=== PATIENT | female | born 1940 | race Caucasian/White ===

== ENCOUNTER 2017-02-06 11:08 | Inpatient (IN) | payer OTHER ==
[2017-02-06 11:15] VITALS: BMI 28.7
--- NOTE | 2017-02-06 11:56 | PDOC ---
History of Present Illness - General History Source: Patient Exam Limitations: No Limitations - History of Present Illness Initial Comments: 02/06/17 13:21 Patient is a 76 year old female with a significant past medical history of DM and recurrent MDR UTI, who presents to the ED sent in by her PMD for UTI. Dr. Haley took urine culture 4 days ago that came back positive for Klebsiella that is sensitive only to imipenim, ertapenem or amikacin. Patient states that her symptoms have initially developed on 01/21 with generalized weakness and dysuria, and over the last week she has developed L flank pain. She states that she has has hx of UTIs. She reports difficulty walking, weakness, agitation and increased confusion. She denies any fever, chill, nausea, vomiting, abdominal pain. She reports urinary incontinence. PCP - Dr. 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 - Suicide/Smoking/Psychosocial Hx Smoking History: Never smoked Information on smoking cessation initiated: No Hx Alcohol Use: No Drug/Substance Use Hx: No Substance Use Type: None <Margarito Caceres - Last Filed: 02/06/17 14:46> - Past Medical History Allergies/Adverse Reactions: Allergies Allergy/AdvReac Type Severity Reaction Status Date / Time hyoscyamine Allergy Verified 02/06/17 11:15 [From Uretron D-S] hyoscyamine sulfate Allergy Verified 02/06/17 11:15 [From Uretron D-S] iodine Allergy Verified 02/06/17 11:15 methenamine Allergy Verified 02/06/17 11:15 [From Uretron D-S] methylene blue Allergy Verified 02/06/17 11:15 [From Uretron D-S] phenyl salicylate Allergy Verified 02/06/17 11:15 [From Uretron D-S] salicylates Allergy Verified 02/06/17 11:15 [From Uretron D-S] sodium phosphate Allergy Verified 02/06/17 11:15 [From Uretron D-S] iv contrast Allergy Uncoded 02/06/17 11:15 Review of Systems - Review of Systems Able to Perform ROS?: Yes Comments:: 02/06/17 13:21 GENERAL/CONSTITUTIONAL: No fever or chills. No weakness. HEAD, EYES, EARS, NOSE AND THROAT: No change in vision. No ear pain or discharge. No sore throat. GASTROINTESTINAL: No nausea, vomiting, diarrhea or constipation. GENITOURINARY: +urinary incontinence, frequency. No dysuria. CARDIOVASCULAR: No chest pain or shortness of breath. RESPIRATORY: No cough, wheezing, or hemoptysis. MUSCULOSKELETAL: No joint or muscle swelling or pain. No neck or back pain. SKIN: No rash NEUROLOGIC: No headache, vertigo, loss of consciousness, or change in strength/ sensation. ENDOCRINE: No increased thirst. No abnormal weight change. HEMATOLOGIC/LYMPHATIC: No anemia, easy bleeding, or history of blood clots. ALLERGIC/IMMUNOLOGIC: No hives or skin allergy. <Zaynab Fowler - Last Filed: 02/06/17 14:02> *Physical Exam - Vital Signs Last Vital Signs Temp Pulse Resp BP Pulse Ox 98.2 F 77 18 122/61 97 02/06/17 11:12 02/06/17 11:12 02/06/17 11:12 02/06/17 11:12 02/06/17 11:12 - Physical Exam Comments: 02/06/17 13:21 GENERAL: Awake, alert, and fully oriented, in no acute distress HEAD: No signs of trauma EYES: PERRLA, EOMI, sclera anicteric, conjunctiva clear ENT: Auricles normal inspection, hearing grossly normal, nares patent, oropharynx clear without exudates. Moist mucosa NECK: Normal ROM, supple, no lymphadenopathy, JVD, or masses LUNGS: Breath sounds equal, clear to auscultation bilaterally. No wheezes, and no crackles HEART: Regular rate and rhythm, normal S1 and S2, no murmurs, rubs or gallops ABDOMEN: Soft, nontender, normoactive bowel sounds. No guarding, no rebound. No masses. +L CVAT EXTREMITIES: Normal range of motion, no edema. No clubbing or cyanosis. No cords, erythema, or tenderness BACK: No midline spinal tendernes in cervial/throacic/lumbar region NEUROLOGICAL: Normal speech, cranial nerves intact, negative pronator drift, 5/ 5 strength in all 4 extremities, normal sensation to light touch in all 4 extremities, normal cerebellar exam, normal gait, normal reflexes and tone SKIN: Warm, Dry, normal turgor, no rashes or lesions noted. <Zaynab Fowler - Last Filed: 02/06/17 14:02> - Vital Signs Last Vital Signs Temp Pulse Resp BP Pulse Ox 98.2 F 77 18 122/61 97 02/06/17 11:12 02/06/17 11:12 02/06/17 11:12 02/06/17 11:12 02/06/17 11:12 <Margarito Caceres - Last Filed: 02/06/17 14:46> Heart Score/ECG Review #1 02/06/17 14:02 Normal sinus at rate 65 Normal axis Norm intervals T wave inversion in lead [address] elevations <Zaynab Fowler - Last Filed: 02/06/17 14:02> ED Treatment Course - LABORATORY CBC & Chemistry Diagram: 02/06/17 13:10 02/06/17 13:10 - ADDITIONAL ORDERS Additional order review: Laboratory Results 02/06/17 13:10 Urine Color Dkyellow Urine Appearance Cloudy Urine pH 5.0 Urine Protein Negative Urine Glucose (UA) Negative Urine Ketones Negative Urine Blood 1+ H Urine Nitrite Positive Urine Bilirubin Negative Urine Urobilinogen Negative Urine RBC 11 Urine WBC 1145 Ur Epithelial Cells Few Urine Bacteria Few Hyaline Casts 7 Urine Mucus Many Urine Yeast Rare 02/06/17 13:10 RBC 4.11 MCV 87.6 MCHC 32.8 RDW 15.9 H MPV 7.3 L Neutrophils % 64.0 Lymphocytes % 25.3 Monocytes % 8.7 Eosinophils % 1.8 Basophils % 0.2 <Zaynab Fowler - Last Filed: 02/06/17 14:02> - LABORATORY CBC & Chemistry Diagram: 02/06/17 13:10 02/06/17 13:10 <Margarito Caceres - Last Filed: 02/06/17 14:46> Medical Decision Making - Medical Decision Making 02/06/17 13:00 76yo F hx MDR UTI p/w MDR UTI. Vitals unremarkable, exam with L CVAT c/f pyelo. Pt has PCN allergy (reports only a rash) and out of concern for cross reactivity with erta or imipenem will c/s ID for recs. -labs -rpt UA/UCx -abx per ID -admit 02/06/17 13:[address] Meza, he will come to evaluate patient and review sensitivities to make recs. Labs pending. 02/06/17 14:43 UA with infection, labs unremarkable. Dr. Meza recommends ertapenem as well as a renal US which he has kindly ordered. Case discussed in detail with admitting physician Dr. Schneider/Mah[place] including history, physical exam and ancillary studies. Admitting physician has assumed care for the patient, will follow all pending diagnostics and will complete the evaluation and treatment. <Margarito Caceres - Last Filed: 02/06/17 14:46> *DC/Admit/Observation/Transfer - Attestations Scribe Attestion: 02/06/17 13:22 Documentation prepared by LENNY Harry, acting as medical van driver for Margarito Caceres MD. <Zaynab Fowler - Last Filed: 02/06/17 14:02> - Discharge Dispostion Admit: Yes - Attestations Physician Attestion: 02/06/17 14:46 I, Dr. Margarito Caceres MD, attest that this document has been prepared under my direction and personally reviewed by me in its entirety. I further attest, that it accurately reflects all work, treatment, procedures and medical decision -making performed by me. <Margarito Caceres - Last Filed: 02/06/17 14:46> Diagnosis at time of Disposition: Pyelonephritis - Discharge Dispostion Condition at time of disposition: Stable - Referrals Referrals: Ana Sam MD [Primary Care Provider] -
[2017-02-06 13:14] LABS: BASOPHIL 0.2 % (0-2.0); EOSINOPHIL 1.8 % (0-4.5); MCH 28.8 pg (25.7-33.7); MCHC 32.8 g/dl (32.0-36.0); MEAN CELL VOLUME 87.6 fl (80-96); MEAN PLT VOLUME 7.3 fl (7.5-11.1); PLATELET COUNT 172 K/MM3 (134-434); RDW 15.9 % (11.6-15.6); WHITE BLOOD COUNT 6.9 K/mm3 (4.0-10.0)
[2017-02-06 13:15] LABS: URINE APPEARANCE CLOUDY; URINE BILIRUBIN NEGATIVE (NEGATIVE); URINE BLOOD 1+ (NEGATIVE); URINE COLOR DKYELLOW; URINE GLUCOSE (UA) NEGATIVE (NEGATIVE); URINE KETONE NEGATIVE (NEGATIVE); URINE NITRITE POSITIVE (NEGATIVE); URINE PROTEIN NEGATIVE (NEGATIVE); URINE UROBILINOGEN NEGATIVE mg/dL (0.2-1.0)
[2017-02-06 13:16] LABS: URINE LEUK ESTERASE 3+ (NEGATIVE)
[2017-02-06 13:19] LABS: URINE BACTERIA FEW /hpf (NONE SEEN); URINE HYALINE CAST 7 /lpf; URINE MUCUS MANY; URINE RBC 11 /hpf (0-3); URINE WBC 1145 /hpf (3-5); YEAST RARE
[2017-02-06 13:42] LABS: ALBUMIN 3.5 g/dl (3.4-5.0); ALK PHOS 63 U/L (45-117); ANION GAP 10 (8-16); BILIRUBIN,TOTAL 0.4 mg/dL (0.2-1.0); CO2 28 mmol/L (21-32); CREATININE 0.4 mg/dL (0.55-1.02); GLUCOSE,RANDOM 82 mg/dL (74-106); SGOT/AST 16 U/L (15-37); SGPT/ALT 17 U/L (12-78); TOT PROT 7.1 g/dl (6.4-8.2)
--- NOTE | 2017-02-06 13:50 | CON.ID ---
Consult Consult Specialty:: infectious diseases Reason for Consultation:: mdro uti - History of Present Illness Chief Complaint: weakness fatigue,loos of balance History of Present Illness: 76 year old female with a significant past medical history of DM and recurrent MDR UTI, who presents to the ED sent in by her PMD for UTI. Dr. Haley took urine culture 4 days ago that came back positive for Klebsiella that is sensitive only to imipenim, ertapenem or amikacin. Patient states that her symptoms have initially developed on 01/21 with generalized weakness and dysuria, and over the last week she has developed L flank pain. She states that she has has hx of UTIs. patient has been very weak and has lost balance says she feels feverish and the weakness has increased - History Source History Provided By: Patient, Family Member Limitations to Obtaining History: No Limitations - Alcohol/Substance Use Hx Alcohol Use: No - Smoking History Smoking history: Never smoked Home Medications - Allergies Allergies/Adverse Reactions: Allergies Allergy/AdvReac Type Severity Reaction Status Date / Time hyoscyamine Allergy Verified 02/06/17 11:15 [From Uretron D-S] hyoscyamine sulfate Allergy Verified 02/06/17 11:15 [From Uretron D-S] iodine Allergy Verified 02/06/17 11:15 methenamine Allergy Verified 02/06/17 11:15 [From Uretron D-S] methylene blue Allergy Verified 02/06/17 11:15 [From Uretron D-S] phenyl salicylate Allergy Verified 02/06/17 11:15 [From Uretron D-S] salicylates Allergy Verified 02/06/17 11:15 [From Uretron D-S] sodium phosphate Allergy Verified 02/06/17 11:15 [From Uretron D-S] iv contrast Allergy Uncoded 02/06/17 11:15 Review of Systems - Review of Systems Constitutional: reports: Weakness, Other Eyes: reports: No Symptoms HENT: reports: No Symptoms Neck: reports: No Symptoms Cardiovascular: reports: No Symptoms Respiratory: reports: No Symptoms Gastrointestinal: reports: No Symptoms Genitourinary: reports: Dysuria, Flank Pain (left) Musculoskeletal: reports: Muscle Weakness Integumentary: reports: No Symptoms Neurological: reports: No Symptoms Endocrine: reports: No Symptoms Hematology/Lymphatic: reports: No Symptoms Psychiatric: reports: No Symptoms Physical Exam Vital Signs: Vital Signs Temperature 98.2 F 02/06/17 11:12 Pulse Rate 77 02/06/17 11:12 Respiratory Rate 18 02/06/17 11:12 Blood Pressure 122/61 02/06/17 11:12 O2 Sat by Pulse Oximetry (%) 97 02/06/17 11:12 Constitutional: Yes: No Distress, Calm Eyes: Yes: Conjunctiva Clear HENT: Yes: Atraumatic, Normocephalic Neck: Yes: Supple, Trachea Midline Respiratory: Yes: Regular, CTA Bilaterally Gastrointestinal: Yes: Normal Bowel Sounds, Soft Renal/: Yes: CVA Tenderness - Left Musculoskeletal: Yes: WNL Extremities: Yes: WNL Neurological: Yes: Alert, Oriented Psychiatric: Yes: Alert, Oriented Labs: CBC, BMP 02/06/17 13:10 02/06/17 13:10 Assessment/Plan evaluated the patient i am worried that the patient has pyelo patient had culture and sensitivity done outside report shows mdro mdro uti fever pyelo weakness plan will start on ertapenam u/s of the kidneys hydration rest as per primary
--- NOTE | 2017-02-06 14:30 | EKG ---
Test Reason : Blood Pressure : / mmHG Vent. Rate : 065 BPM Atrial Rate : 065 BPM P-R Int : 166 ms QRS Dur : 084 ms QT Int : 434 ms P-R-T Axes : 008 -01 028 degrees QTc Int : 451 ms NORMAL SINUS RHYTHM MINIMAL VOLTAGE CRITERIA FOR LVH, MAY BE NORMAL VARIANT BORDERLINE ECG NO PREVIOUS ECGS AVAILABLE Confirmed by KAYLEY TREJO MD ([id number]) on 02/06/2017 2:29:38 PM Referred By: Confirmed By:KAYLEY TREJO MD
[2017-02-06] MEDS: ERTAPENEM SODIUM 1 GM in SODIUM CHLORIDE 50 ML IVPB SCH (15:44)
[2017-02-06] MEDS ORDERED: oxyCODONE HCL 5 MG TABLET PO PRN (16:00)
[2017-02-06] MEDS ORDERED: SODIUM CHLORIDE 0.45% 1,000 ML IV SCH (16:00)
--- NOTE | 2017-02-06 16:05 | HP ---
Admitting History and Physical - Admission Chief Complaint: confusion, urinary frequency History of Present Illness: This is a 76 year old male with DM II and history of recurrent MDR UTI's. Patient presented to her PCP with 1 week complaints of urinary frequency and supra pubic pelvic pain, L flank pain. Urine cx resulted with MDR organisms and pt was sent to ER for abx. Per son, pt has been increasingly more confused and agitated. Currently, pt appears at baseline, denies SOB, CP, nausea, vomiting. Son noted her gait has been a unsteady as well. History Source: Patient, Family Member Limitations to Obtaining History: No Limitations - Past Medical History Cardiovascular: Yes: Other (hypotension) Pulmonary: Yes: Asthma Gastrointestinal: Yes: Diverticulitis Endocrine: Yes: Diabetes Mellitus - Past Surgical History Past Surgical History: Yes: Appendectomy, Cholecystectomy Additional Past Surgical History: R knee replacement Bladder sling for prolapsed bladder - Smoking History Smoking history: Never smoked - Alcohol/Substance Use Hx Alcohol Use: No History of Substance Use: reports: None - Social History Usual Living Arrangement: Yes: Alone ADL: Independent Home Medications - Allergies Allergies/Adverse Reactions: Allergies Allergy/AdvReac Type Severity Reaction Status Date / Time hyoscyamine Allergy Verified 02/06/17 11:15 [From Uretron D-S] hyoscyamine sulfate Allergy Verified 02/06/17 11:15 [From Uretron D-S] iodine Allergy Verified 02/06/17 11:15 methenamine Allergy Verified 02/06/17 11:15 [From Uretron D-S] methylene blue Allergy Verified 02/06/17 11:15 [From Uretron D-S] phenyl salicylate Allergy Verified 02/06/17 11:15 [From Uretron D-S] salicylates Allergy Verified 02/06/17 11:15 [From Uretron D-S] sodium phosphate Allergy Verified 02/06/17 11:15 [From Uretron D-S] iv contrast Allergy Uncoded 02/06/17 11:15 Review of Systems - Review of Systems Constitutional: reports: Lethargy, Weakness Physical Examination Vital Signs: Vital Signs Temperature 98.2 F 02/06/17 11:12 Pulse Rate 77 02/06/17 11:12 Respiratory Rate 18 02/06/17 11:12 Blood Pressure 122/61 02/06/17 11:12 O2 Sat by Pulse Oximetry (%) 97 02/06/17 11:12 Constitutional: Yes: Calm Eyes: Yes: Conjunctiva Clear Cardiovascular: Yes: Regular Rate and Rhythm, S1, S2 Respiratory: Yes: Regular, CTA Bilaterally Gastrointestinal: Yes: Normal Bowel Sounds, Soft, Other (lower abdominal tenderness) Renal/: Yes: CVA Tenderness - Left Extremities: Yes: WNL Edema: No Integumentary: Yes: WNL Neurological: Yes: Alert, Oriented, Cran Nerves II-XII Intact Psychiatric: Yes: Alert, Oriented Imaging - Results X-ray: Report Reviewed EKG: Report Reviewed Problem List - Problems (1) Pyelonephritis Code(s): N12 - TUBULO-INTERSTITIAL NEPHRITIS, NOT SPCF ACUTE OR CHRONIC (2) UTI due to Klebsiella species Code(s): N39.0 - URINARY TRACT INFECTION, SITE NOT SPECIFIED B96.1 - KLEBSIELLA PNEUMONIAE THE CAUSE OF DISEASES [facility] (3) Diabetes mellitus Code(s): E11.9 - TYPE 2 DIABETES MELLITUS WITHOUT COMPLICATIONS Assessment/Plan Assessment: 76 year old female admitted with MDR UTI Plan: 1. MDR UTI - Urine cx pending - Started Ertapenem - Start NS 83cc/hr - ID seeing 2. Pyelonephritis - Renal US wnl - See above 3. DM II - ISS, BGM ACHS Visit type - Emergency Visit Emergency Visit: Yes ED Registration Date: 02/06/17 Care time: The patient presented to the Emergency Department on the above date and was hospitalized for further evaluation of their emergent condition. - New Patient This patient is new to me today: Yes Date on this admission: 02/06/17 - Critical Care Critical Care patient: No
[2017-02-06] MEDS: SODIUM CHLORIDE 1,000 ML IV SCH (17:00)
[2017-02-06] MEDS: INSULIN SLIDING SCALE (NOVOLOG) 1 VIAL SQ SCH ×2 (18:50→21:27)
[2017-02-07] MEDS: SODIUM CHLORIDE 1,000 ML IV SCH ×2 (05:34→15:30)
[2017-02-07] MEDS: INSULIN SLIDING SCALE (NOVOLOG) 1 VIAL SQ SCH ×4 (06:04→22:04)
[2017-02-07] MEDS: ACETAMINOPHEN 325 MG TABLET (FP) PO PRN ×2 (06:11→15:31)
[2017-02-07 07:44] LABS: BASOPHIL 0.1 % (0-2.0); EOSINOPHIL 1.6 % (0-4.5); MCH 28.6 pg (25.7-33.7); MCHC 32.8 g/dl (32.0-36.0); MEAN CELL VOLUME 87.4 fl (80-96); NEUTROPHILS 68.4 % (42.8-82.8); PLATELET COUNT 157 K/MM3 (134-434); RDW 15.3 % (11.6-15.6); WHITE BLOOD COUNT 7.3 K/mm3 (4.0-10.0)
[2017-02-07 08:37] LABS: ALBUMIN 3.1 g/dl (3.4-5.0); ALK PHOS 56 U/L (45-117); ANION GAP 10 (8-16); BILIRUBIN,TOTAL 0.6 mg/dL (0.2-1.0); CALCIUM 8.3 mg/dL (8.5-10.1); CO2 25 mmol/L (21-32); CREATININE 0.4 mg/dL (0.55-1.02); GLUCOSE,RANDOM 86 mg/dL (74-106); MAGNESIUM 2.1 mg/dL (1.8-2.4); PHOSPHOROUS 2.9 mg/dL (2.5-4.9); SGOT/AST 13 U/L (15-37); SGPT/ALT 15 U/L (12-78); TOT PROT 6.6 g/dl (6.4-8.2)
[2017-02-07] MEDS ORDERED: PT OWN MED DRAWER 7, Y5N ONE (10:56)
[2017-02-07] MEDS: ERTAPENEM SODIUM 1 GM in SODIUM CHLORIDE 50 ML IVPB SCH (10:59)
[2017-02-07] MEDS: ENOXAPARIN NA (PORCINE) 40 MG/0.4 ML DISP.SYRIN SQ SCH (10:59)
--- NOTE | 2017-02-07 13:25 | PN ---
Progress Note, Physician History of Present Illness: had severe pain last night in the back now she is comfortable urine showing infection - Current Medication List Current Medications: Active Medications Acetaminophen (Tylenol -) 650 mg PO Q6H PRN PRN Reason: FEVER OR PAIN Last Admin: 02/07/17 06:11 Dose: 650 mg Enoxaparin Sodium (Lovenox -) 40 mg SQ DAILY [facility] Last Admin: 02/07/17 10:59 Dose: 40 mg Ertapenem 1 gm/ Sodium (Chloride) 50 mls @ 100 mls/hr IVPB DAILY [facility] PRN Reason: Protocol Last Admin: 02/07/17 10:59 Dose: 100 mls/hr Sodium Chloride (Normal Saline -) 1,000 mls @ 83 mls/hr IV ASDIR [facility] Last Admin: 02/07/17 05:34 Dose: 83 mls/hr Insulin Aspart (Novolog Vial Sliding Scale -) 1 vial SQ ACHS [facility] PRN Reason: Protocol Last Admin: 02/07/17 12:16 Dose: Not Given Oxycodone HCl (Roxicodone -) 5 mg PO Q6H PRN PRN Reason: PAIN - Objective Vital Signs: Vital Signs Temperature 96.8 F L 02/07/17 09:29 Pulse Rate 74 02/07/17 09:29 Respiratory Rate 17 02/07/17 09:29 Blood Pressure 108/52 02/07/17 09:29 O2 Sat by Pulse Oximetry (%) 100 02/06/17 16:00 Constitutional: Yes: No Distress, Calm Cardiovascular: Yes: Regular Rate and Rhythm Respiratory: Yes: Regular, CTA Bilaterally Gastrointestinal: Yes: Normal Bowel Sounds, Soft Musculoskeletal: Yes: WNL Extremities: Yes: WNL Neurological: Yes: Alert, Oriented Psychiatric: Yes: Alert, Oriented Labs: CBC, BMP 02/07/17 06:50 02/07/17 06:50 - ....Imaging Ultrasound: Report Reviewed, Image Reviewed Assessment/Plan mdro uti fever pyelo weakness plan continue current abx monitor back pain hydration rest as per primary team
--- NOTE | 2017-02-07 14:12 | PN ---
Physical Exam: SUBJECTIVE: Patient seen and examined. She is feeling better, but still c/o dysuria and L flank tenderness. Denies fever, chills OBJECTIVE: Vital Signs Period Temp Pulse Resp BP Sys/Flynn Pulse Ox Last 24 Hr 96.8 F-98.5 F 71-78 14-20 94-108/45-59 100 PE Neuro: alert, awake, cn 2-12intact Pulm: CTAB CV: s1 s2 rrr no mrg Abd: s nt nd + bs : L flank pain Ext: warm, no le edema Laboratory Results - last 24 hr 02/07/17 02/07/17 02/07/17 06:50 06:50 11:39 WBC 7.3 RBC 4.05 Hgb 11.6 Hct 35.3 MCV 87.4 MCH 28.6 MCHC 32.8 RDW 15.3 Plt Count 157 MPV 8.0 Neutrophils % 68.4 Lymphocytes % 20.6 Monocytes % 9.3 Eosinophils % 1.6 Basophils % 0.1 Sodium 140 Potassium 3.9 Chloride 105 Carbon Dioxide 25 Anion Gap 10 BUN 12 Creatinine 0.4 L Creat Clearance w eGFR > 60 POC Glucometer 86 Random Glucose 86 Calcium 8.3 L Phosphorus 2.9 Magnesium 2.1 Total Bilirubin 0.6 D AST 13 L ALT 15 Alkaline Phosphatase 56 Total Protein 6.6 Albumin 3.1 L Active Medications Generic Name Dose Route Start Last Admin Trade Name Freq PRN Reason Stop Dose Admin Acetaminophen 650 mg 02/07/17 05:41 02/07/17 06:11 Tylenol - PO 650 mg Q6H PRN Administration FEVER OR PAIN Enoxaparin Sodium 40 mg 02/07/17 10:00 02/07/17 10:59 Lovenox - SQ 40 mg DAILY [facility] Administration Ertapenem 1 gm/ Sodium 50 mls @ 100 mls/hr 02/06/17 14:00 02/07/17 10:59 Chloride IVPB 100 mls/hr DAILY [facility] Administration Protocol Sodium Chloride 1,000 mls @ 83 mls/hr 02/06/17 16:15 02/07/17 05:34 Normal Saline - IV 83 mls/hr ASDIR [facility] Administration Insulin Aspart 1 vial 02/06/17 16:30 02/07/17 12:16 Novolog Vial Sliding Scale - SQ Not Given ACHS [facility] Protocol Oxycodone HCl 5 mg 02/06/17 16:00 Roxicodone - PO Q6H PRN PAIN Microbiology 02/06/17 13:10 Blood Culture - Preliminary Blood - Peripheral Venous NO GROWTH OBTAINED AFTER 24 HOURS, INCUBATION TO CONTINUE FOR 4 DAYS. 02/06/17 13:10 Blood Culture - Preliminary Blood - Peripheral Venous NO GROWTH OBTAINED AFTER 24 HOURS, INCUBATION TO CONTINUE FOR 4 DAYS. 02/06/17 13:10 Urine Culture - Preliminary Urine - Urine Clean Catch Lactose Fermenting Neg Bacilli Assessment: 76 year old female admitted with MDR UTI. Plan: 1. MDR UTI - Urine cx LFNB - Ertapenem (day 2) - Decrease to 75cc/hr - ID seeing 2. Pyelonephritis - Renal US wnl - See above 3. DM II - ISS, BGM ACHS Problem List - Problems (1) Pyelonephritis Code(s): N12 - TUBULO-INTERSTITIAL NEPHRITIS, NOT SPCF ACUTE OR CHRONIC (2) UTI due to Klebsiella species Code(s): N39.0 - URINARY TRACT INFECTION, SITE NOT SPECIFIED B96.1 - KLEBSIELLA PNEUMONIAE THE CAUSE OF DISEASES CLASSD [facility] (3) Diabetes mellitus Code(s): E11.9 - TYPE 2 DIABETES MELLITUS WITHOUT COMPLICATIONS Visit type - Emergency Visit Emergency Visit: Yes ED Registration Date: 02/06/17 Care time: The patient presented to the Emergency Department on the above date and was hospitalized for further evaluation of their emergent condition. - New Patient This patient is new to me today: No - Critical Care Critical Care patient: No
[2017-02-08] MEDS: INSULIN SLIDING SCALE (NOVOLOG) 1 VIAL SQ SCH ×4 (06:24→21:18)
[2017-02-08] MEDS: SODIUM CHLORIDE 1,000 ML IV SCH ×2 (06:24→21:13)
[2017-02-08] MEDS: ENOXAPARIN NA (PORCINE) 40 MG/0.4 ML DISP.SYRIN SQ SCH (10:47)
[2017-02-08] MEDS: ERTAPENEM SODIUM 1 GM in SODIUM CHLORIDE 50 ML IVPB SCH (11:52)
--- NOTE | 2017-02-08 12:31 | PN ---
Progress Note, Physician History of Present Illness: doing well no issues - Current Medication List Current Medications: Active Medications Acetaminophen (Tylenol -) 650 mg PO Q6H PRN PRN Reason: FEVER OR PAIN Last Admin: 02/07/17 15:31 Dose: 650 mg Docusate Sodium (Colace -) 100 mg PO TID REPLACED BY [facility] Enoxaparin Sodium (Lovenox -) 40 mg SQ DAILY REPLACED BY [facility] Last Admin: 02/08/17 10:47 Dose: 40 mg Ertapenem 1 gm/ Sodium (Chloride) 50 mls @ 100 mls/hr IVPB DAILY [facility] PRN Reason: Protocol Last Admin: 02/08/17 11:52 Dose: 100 mls/hr Sodium Chloride (Normal Saline -) 1,000 mls @ 75 mls/hr IV ASDIR REPLACED BY [facility] Last Admin: 02/08/17 06:24 Dose: 75 mls/hr Insulin Aspart (Novolog Vial Sliding Scale -) 1 vial SQ ACHS REPLACED BY [facility] PRN Reason: Protocol Last Admin: 02/08/17 11:33 Dose: Not Given Oxycodone HCl (Roxicodone -) 5 mg PO Q6H PRN PRN Reason: PAIN Polyethylene Glycol (Miralax (For Daily Use) -) 17 gm PO DAILY REPLACED BY [facility] - Objective Vital Signs: Vital Signs Temperature 98.2 F 02/08/17 07:00 Pulse Rate 77 02/08/17 07:00 Respiratory Rate 18 02/08/17 09:00 Blood Pressure 106/66 02/08/17 07:00 O2 Sat by Pulse Oximetry (%) 100 02/06/17 16:00 Constitutional: Yes: No Distress, Calm Neck: Yes: Supple Cardiovascular: Yes: Regular Rate and Rhythm Respiratory: Yes: Regular, CTA Bilaterally Gastrointestinal: Yes: Normal Bowel Sounds, Soft Musculoskeletal: Yes: WNL Extremities: Yes: WNL Neurological: Yes: Alert, Oriented Psychiatric: Yes: Alert, Oriented Labs: CBC, BMP 02/07/17 06:50 02/07/17 06:50 Assessment/Plan mdro uti fever pyelo weakness cx result noted patient has esbl uti plan continue current abx patient improving
[2017-02-08 13:15] LABS: BASOPHIL 0.3 % (0-2.0); EOSINOPHIL 1.6 % (0-4.5); MCH 28.8 pg (25.7-33.7); MEAN CELL VOLUME 87.3 fl (80-96); MEAN PLT VOLUME 7.9 fl (7.5-11.1); NEUTROPHILS 65.4 % (42.8-82.8); PLATELET COUNT 154 K/MM3 (134-434); RDW 15.7 % (11.6-15.6); WHITE BLOOD COUNT 6.9 K/mm3 (4.0-10.0)
[2017-02-08 13:23] LABS: ANION GAP 5 (8-16); BILIRUBIN,TOTAL 0.2 mg/dL (0.2-1.0); CALCIUM 8.4 mg/dL (8.5-10.1); CO2 30 mmol/L (21-32); CREATININE 0.4 mg/dL (0.55-1.02); GLUCOSE,RANDOM 111 mg/dL (74-106); SGOT/AST 12 U/L (15-37); SGPT/ALT 16 U/L (12-78); TOT PROT 6.4 g/dl (6.4-8.2)
[2017-02-08 13:24] LABS: ALK PHOS 58 U/L (45-117)
[2017-02-08] MEDS: DOCUSATE SODIUM 100 MG CAPSULE (FP) PO SCH ×2 (13:55→21:17)
[2017-02-08] MEDS: POLYETHYLENE GLYCOL 3350 119 GM BTL PO SCH (13:57)
--- NOTE | 2017-02-08 18:35 | PN ---
Physical Exam: SUBJECTIVE: Patient seen and examined at the bedside. OBJECTIVE: Vital Signs Period Temp Pulse Resp BP Sys/Flynn Pulse Ox Last 24 Hr 97.8 F-98.7 F 71-84 18-20 101-106/51-66 GENERAL: The patient is awake, alert, and fully oriented, in no acute distress. HEAD: Normal with no signs of trauma. EYES: PERRL, extraocular movements intact, sclera anicteric, conjunctiva clear. No ptosis. ENT: Ears normal, nares patent, oropharynx clear without exudates, moist mucous membranes. NECK: Trachea midline, full range of motion, supple. LUNGS: Breath sounds equal, clear to auscultation bilaterally, no wheezes, no crackles, no accessory muscle use. HEART: Regular rate and rhythm, S1, S2 without murmur, rub or gallop. ABDOMEN: Soft, nontender, nondistended, normoactive bowel sounds, no guarding, no rebound, no hepatosplenomegaly, no masses. EXTREMITIES: 2+ pulses, warm, well-perfused, no edema. NEUROLOGICAL: Normal speech, gait not observed. PSYCH: Normal mood, normal affect. SKIN: Warm, dry, normal turgor, no rashes or lesions noted Laboratory Results - last 24 hr 02/07/17 02/08/17 02/08/17 21:35 05:39 11:32 WBC RBC Hgb Hct MCV MCH MCHC RDW Plt Count MPV Neutrophils % Lymphocytes % Monocytes % Eosinophils % Basophils % Sodium Potassium Chloride Carbon Dioxide Anion Gap BUN Creatinine Creat Clearance w eGFR POC Glucometer 88 94 123 Random Glucose Calcium Total Bilirubin AST ALT Alkaline Phosphatase Total Protein Albumin 02/08/17 02/08/17 02/08/17 12:45 12:45 16:50 WBC 6.9 RBC 3.82 Hgb 11.0 Hct 33.3 MCV 87.3 MCH 28.8 MCHC 33.0 RDW 15.7 H Plt Count 154 MPV 7.9 Neutrophils % 65.4 Lymphocytes % 23.2 Monocytes % 9.5 Eosinophils % 1.6 Basophils % 0.3 Sodium 140 Potassium 3.6 Chloride 105 Carbon Dioxide 30 Anion Gap 5 L BUN 9 D Creatinine 0.4 L Creat Clearance w eGFR > 60 POC Glucometer 81 Random Glucose 111 H D Calcium 8.4 L Total Bilirubin 0.2 D AST 12 L ALT 16 Alkaline Phosphatase 58 Total Protein 6.4 Albumin 3.0 L Active Medications Generic Name Dose Route Start Last Admin Trade Name Freq PRN Reason Stop Dose Admin Acetaminophen 650 mg 02/07/17 05:41 02/07/17 15:31 Tylenol - PO 650 mg Q6H PRN Administration FEVER OR PAIN Docusate Sodium 100 mg 02/08/17 14:00 02/08/17 13:55 Colace - PO 100 mg TID MACHO Administration Enoxaparin Sodium 40 mg 02/07/17 10:00 02/08/17 10:47 Lovenox - SQ 40 mg DAILY MACHO Administration Ertapenem 1 gm/ Sodium 50 mls @ 100 mls/hr 02/06/17 14:00 02/08/17 11:52 Chloride IVPB 100 mls/hr DAILY MACHO Administration Protocol Sodium Chloride 1,000 mls @ 75 mls/hr 02/07/17 14:14 02/08/17 06:24 Normal Saline - IV 75 mls/hr ASDIR MACHO Administration Insulin Aspart 1 vial 02/06/17 16:30 02/08/17 16:56 Novolog Vial Sliding Scale - SQ Not Given ACHS MACHO Protocol Oxycodone HCl 5 mg 02/06/17 16:00 Roxicodone - PO Q6H PRN PAIN Polyethylene Glycol 17 gm 02/08/17 12:30 02/08/17 13:57 Miralax (For Daily Use) - PO Not Given DAILY MACHO ASSESSMENT/PLAN: Patient is a 76 year old female with a significant past medical history of DM and recurrent multidrug resistant UTIs. She was sent to the ED by her PMD on UTI. Dr. Haley took urine culture that came back positive for Klebsiella that is sensitive only to select antibiotics. Patient states that her symptoms have initially developed on 01/21 with generalized weakness and dysuria, and over the last week she has developed left flank pain. Patient reported difficulty walking, weakness, agitation and increased confusion at home. She denies any fever, chill, nausea, vomiting, abdominal pain. She reports urinary incontinence. Currently, patient appears at baseline, denies SOB, CP, nausea, vomiting. She is ambulating in the room, without any dizziness or shortness of breath. Imaging: Renal ultrasound: Both kidneys appear unremarkable ID/Renal: Multidrug resistant UTIs - acute on chronic A/P: Urine culture with + ESBL in urine, blood cultures negative to date On Ertapenem as of 02/06/2017, on IVF of NS @ 75cc/hr Monitor WBC, labs ID following, notes reviewed Neuro: Toxic metabolic encephalopathy in the setting of a UTI - resolved A/P: Monitor intake and output, monitor mental status Continue IVF, will order PT when patient more stable F.E.N. Fluids: Normal saline @ 75cc/hr Electrolytes: monitor BMP Nutrition: low sodium diet Prophylaxis: DVT: Lovenox 40mg daily GI: colace Visit type - Emergency Visit Emergency Visit: Yes ED Registration Date: 02/06/17 Care time: The patient presented to the Emergency Department on the above date and was hospitalized for further evaluation of their emergent condition. - New Patient This patient is new to me today: Yes Date on this admission: 02/09/17 - Critical Care Critical Care patient: No - Discharge Referral Referred to [facility] Med P.C.: No
[2017-02-09] MEDS: DOCUSATE SODIUM 100 MG CAPSULE (FP) PO SCH ×3 (06:17→22:09)
[2017-02-09] MEDS: INSULIN SLIDING SCALE (NOVOLOG) 1 VIAL SQ SCH ×4 (06:17→22:10)
[2017-02-09 07:38] LABS: BASOPHIL 0.4 % (0-2.0); EOSINOPHIL 2.8 % (0-4.5); MCHC 33.3 g/dl (32.0-36.0); NEUTROPHILS 50.2 % (42.8-82.8); PLATELET COUNT 157 K/MM3 (134-434); RDW 15.5 % (11.6-15.6); WHITE BLOOD COUNT 4.9 K/mm3 (4.0-10.0)
[2017-02-09 08:11] LABS: ALBUMIN 2.9 g/dl (3.4-5.0); ALK PHOS 53 U/L (45-117); ANION GAP 6 (8-16); BILIRUBIN,TOTAL 0.2 mg/dL (0.2-1.0); CO2 28 mmol/L (21-32); CREATININE 0.3 mg/dL (0.55-1.02); GLUCOSE,RANDOM 86 mg/dL (74-106); SGOT/AST 11 U/L (15-37); SGPT/ALT 13 U/L (12-78); TOT PROT 6.2 g/dl (6.4-8.2)
[2017-02-09] MEDS: SODIUM CHLORIDE 1,000 ML IV SCH ×2 (09:35→13:34)
[2017-02-09] MEDS: ENOXAPARIN NA (PORCINE) 40 MG/0.4 ML DISP.SYRIN SQ SCH (09:36)
[2017-02-09] MEDS: POLYETHYLENE GLYCOL 3350 119 GM BTL PO SCH (09:36)
[2017-02-09] MEDS: ERTAPENEM SODIUM 1 GM in SODIUM CHLORIDE 50 ML IVPB SCH (11:02)
--- NOTE | 2017-02-09 12:35 | PN ---
Progress Note, Physician History of Present Illness: doing well no issues - Current Medication List Current Medications: Active Medications Acetaminophen (Tylenol -) 650 mg PO Q6H PRN PRN Reason: FEVER OR PAIN Last Admin: 02/07/17 15:31 Dose: 650 mg Docusate Sodium (Colace -) 100 mg PO TID [facility] Last Admin: 02/09/17 06:17 Dose: 100 mg Enoxaparin Sodium (Lovenox -) 40 mg SQ DAILY [facility] Last Admin: 02/09/17 09:36 Dose: 40 mg Ertapenem 1 gm/ Sodium (Chloride) 50 mls @ 100 mls/hr IVPB DAILY MACHO PRN Reason: Protocol Last Admin: 02/09/17 11:02 Dose: 100 mls/hr Sodium Chloride (Normal Saline -) 1,000 mls @ 75 mls/hr IV ASDIR [facility] Last Admin: 02/09/17 09:35 Dose: 75 mls/hr Insulin Aspart (Novolog Vial Sliding Scale -) 1 vial SQ ACHS [facility] PRN Reason: Protocol Last Admin: 02/09/17 06:17 Dose: Not Given Oxycodone HCl (Roxicodone -) 5 mg PO Q6H PRN PRN Reason: PAIN Polyethylene Glycol (Miralax (For Daily Use) -) 17 gm PO DAILY [facility] Last Admin: 02/09/17 09:36 Dose: Not Given - Objective Vital Signs: Vital Signs Temperature 97.7 F 02/09/17 09:00 Pulse Rate 72 02/09/17 09:00 Respiratory Rate 18 02/09/17 09:00 Blood Pressure 126/65 02/09/17 09:00 O2 Sat by Pulse Oximetry (%) 96 02/08/17 21:00 Constitutional: Yes: No Distress, Calm Respiratory: Yes: Regular, CTA Bilaterally Gastrointestinal: Yes: Normal Bowel Sounds, Soft Genitourinary: Yes: WNL Musculoskeletal: Yes: WNL Extremities: Yes: WNL Neurological: Yes: Alert, Oriented Psychiatric: Yes: Alert, Oriented Labs: CBC, BMP 02/09/17 06:20 02/09/17 06:00 Assessment/Plan mdro uti fever pyelo weakness cx result noted patient has esbl uti plan continue current abx patient improving patient will need 2 weeks of abx rest as per primary team
--- NOTE | 2017-02-09 16:14 | PN ---
Physical Exam: SUBJECTIVE: Patient seen and examined at the bedside, ambulating in the room. She denies any chest pain or shortness of breath. Denies any back pain. OBJECTIVE: Vital Signs Period Temp Pulse Resp BP Sys/Flynn Pulse Ox Last 24 Hr 97.5 F-98.6 F 64-76 16-20 101-126/53-82 96-98 GENERAL: The patient is awake, alert, and fully oriented, in no acute distress. HEAD: Normal with no signs of trauma. EYES: PERRL, extraocular movements intact, sclera anicteric, conjunctiva clear. No ptosis. ENT: Ears normal, nares patent, oropharynx clear without exudates, moist mucous membranes. NECK: Trachea midline, full range of motion, supple. LUNGS: Breath sounds equal, clear to auscultation bilaterally, no wheezes, no crackles, no accessory muscle use. HEART: Regular rate and rhythm, S1, S2 without murmur, rub or gallop. ABDOMEN: Soft, nontender, nondistended, normoactive bowel sounds, no guarding, no rebound, no hepatosplenomegaly, no masses. EXTREMITIES: 2+ pulses, warm, well-perfused, no edema. NEUROLOGICAL: Normal speech, gait not observed. PSYCH: Normal mood, normal affect. SKIN: Warm, dry, normal turgor, no rashes or lesions noted Laboratory Results - last 24 hr 02/08/17 02/08/17 02/09/17 16:50 21:16 06:00 WBC RBC Hgb Hct MCV MCH MCHC RDW Plt Count MPV Neutrophils % Lymphocytes % Monocytes % Eosinophils % Basophils % Sodium 142 Potassium 3.7 Chloride 108 H Carbon Dioxide 28 Anion Gap 6 L BUN 9 Creatinine 0.3 L D Creat Clearance w eGFR > 60 POC Glucometer 81 82 Random Glucose 86 D Calcium 8.0 L Total Bilirubin 0.2 AST 11 L ALT 13 Alkaline Phosphatase 53 Total Protein 6.2 L Albumin 2.9 L 02/09/17 02/09/17 02/09/17 06:16 06:20 11:20 WBC 4.9 RBC 3.87 Hgb 11.2 Hct 33.7 MCV 87.0 MCH 29.0 MCHC 33.3 RDW 15.5 Plt Count 157 MPV 8.0 Neutrophils % 50.2 D Lymphocytes % 35.3 D Monocytes % 11.3 H Eosinophils % 2.8 Basophils % 0.4 Sodium Potassium Chloride Carbon Dioxide Anion Gap BUN Creatinine Creat Clearance w eGFR POC Glucometer 78 95 Random Glucose Calcium Total Bilirubin AST ALT Alkaline Phosphatase Total Protein Albumin Active Medications Generic Name Dose Route Start Last Admin Trade Name Khoa PRN Reason Stop Dose Admin Acetaminophen 650 mg 02/07/17 05:41 02/07/17 15:31 Tylenol - PO 650 mg Q6H PRN Administration FEVER OR PAIN Docusate Sodium 100 mg 02/08/17 14:00 02/09/17 13:33 Colace - PO 100 mg TID MACHO Administration Enoxaparin Sodium 40 mg 02/07/17 10:00 02/09/17 09:36 Lovenox - SQ 40 mg DAILY MACHO Administration Ertapenem 1 gm/ Sodium 50 mls @ 100 mls/hr 02/06/17 14:00 02/09/17 11:02 Chloride IVPB 100 mls/hr DAILY MACHO Administration Protocol Sodium Chloride 1,000 mls @ 75 mls/hr 02/07/17 14:14 02/09/17 13:34 Normal Saline - IV Not Given ASDIR MACHO Insulin Aspart 1 vial 02/06/17 16:30 02/09/17 12:41 Novolog Vial Sliding Scale - SQ Not Given ACHS MACHO Protocol Polyethylene Glycol 17 gm 02/08/17 12:30 02/09/17 09:36 Miralax (For Daily Use) - PO Not Given DAILY MACHO ASSESSMENT/PLAN: Patient is a 76 year old female with a significant past medical history of DM and recurrent multidrug resistant UTIs. She was sent to the ED by her PMD on UTI. Dr. Haley took urine culture that came back positive for Klebsiella that is sensitive only to select antibiotics. Patient states that her symptoms have initially developed on 01/21 with generalized weakness and dysuria, and over the last week she has developed left flank pain. Patient reported difficulty walking, weakness, agitation and increased confusion at home. She denies any fever, chill, nausea, vomiting, abdominal pain. She reports urinary incontinence. Currently, patient appears at baseline, denies SOB, CP, nausea, vomiting. She is ambulating in the room, without any dizziness or shortness of breath. Imaging: Renal ultrasound: Both kidneys appear unremarkable ID/Renal: Multidrug resistant UTIs - acute on chronic A/P: Urine culture with + ESBL in urine, blood cultures negative to date On Ertapenem as of 02/06/2017, on IVF of NS @ 75cc/hr Monitor WBC, labs ID following, notes reviewed As per ID, patient will need 2 weeks of IV antibiotics, patient will need PICC line prior to d/c Neuro: Toxic metabolic encephalopathy in the setting of a UTI - resolved A/P: Monitor intake and output, monitor mental status Continue IVF, will order PT when patient more stable F.E.N. Fluids: Normal saline @ 75cc/hr Electrolytes: monitor BMP Nutrition: low sodium diet Prophylaxis: DVT: Lovenox 40mg daily GI: Protonix Disposition: Full code. Visit type - Emergency Visit Emergency Visit: Yes ED Registration Date: 02/06/17 Care time: The patient presented to the Emergency Department on the above date and was hospitalized for further evaluation of their emergent condition. - New Patient This patient is new to me today: No - Critical Care Critical Care patient: No - Discharge Referral Referred to [facility] Med P.C.: No
[2017-02-10] MEDS: DOCUSATE SODIUM 100 MG CAPSULE (FP) PO SCH ×2 (06:25→14:43)
[2017-02-10] MEDS: INSULIN SLIDING SCALE (NOVOLOG) 1 VIAL SQ SCH ×2 (06:25→12:03)
[2017-02-10 08:33] LABS: BASOPHIL 0.3 % (0-2.0); EOSINOPHIL 2.3 % (0-4.5); MCH 28.3 pg (25.7-33.7); MCHC 32.3 g/dl (32.0-36.0); MEAN CELL VOLUME 87.6 fl (80-96); MEAN PLT VOLUME 8.2 fl (7.5-11.1); NEUTROPHILS 51.9 % (42.8-82.8); PLATELET COUNT 166 K/MM3 (134-434); RDW 15.8 % (11.6-15.6); WHITE BLOOD COUNT 5.5 K/mm3 (4.0-10.0)
[2017-02-10 09:10] LABS: ANION GAP 6 (8-16); CALCIUM 8.8 mg/dL (8.5-10.1); CO2 28 mmol/L (21-32); GLUCOSE,RANDOM 83 mg/dL (74-106)
[2017-02-10 09:14] LABS: ALK PHOS 52 U/L (45-117); BILIRUBIN,TOTAL 0.3 mg/dL (0.2-1.0); CREATININE 0.3 mg/dL (0.55-1.02); SGOT/AST 18 U/L (15-37); SGPT/ALT 18 U/L (12-78); TOT PROT 6.6 g/dl (6.4-8.2)
[2017-02-10] MEDS ORDERED: PICC LINE 8 ML FLUSH PROTOCOL IVPUSH PRN (09:32)
--- NOTE | 2017-02-10 09:43 | DS ---
Physical Exam: SUBJECTIVE: Patient seen and examined at the bedside. She was participating with PT today. Denies any pain, discomfort. OBJECTIVE: Discharge today. Patient will need Ertapenem 1gram for 2 more weeks as per ID PICC line today Vital Signs Period Temp Pulse Resp BP Sys/Flynn Pulse Ox Last 24 Hr 97.6 F-98.9 F 68-79 16-18 112-128/57-72 98 PHYSICAL EXAM GENERAL: The patient is awake, alert, and fully oriented, in no acute distress. HEAD: Normal with no signs of trauma. EYES: PERRL, extraocular movements intact, sclera anicteric, conjunctiva clear. ENT: Ears normal, nares patent, oropharynx clear without exudates, moist mucous membranes. NECK: Trachea midline, full range of motion, supple. LUNGS: Breath sounds equal, clear to auscultation bilaterally, no wheezes, no crackles, no accessory muscle use. HEART: Regular rate and rhythm, S1, S2 without murmur, rub or gallop. ABDOMEN: Soft, nontender, nondistended, normoactive bowel sounds, no guarding, no rebound, no hepatosplenomegaly, no masses. EXTREMITIES: 2+ pulses, warm, well-perfused, no edema. NEUROLOGICAL: Cranial nerves II through XII grossly intact. Normal speech, steady gait with PT PSYCH: Normal mood, normal affect. SKIN: Warm, dry, normal turgor, no rashes or lesions noted. LABS Laboratory Results - last 24 hr 02/09/17 02/09/17 02/10/17 11:20 22:08 06:25 WBC RBC Hgb Hct MCV MCH MCHC RDW Plt Count MPV Neutrophils % Lymphocytes % Monocytes % Eosinophils % Basophils % Sodium Potassium Chloride Carbon Dioxide Anion Gap BUN Creatinine Creat Clearance w eGFR POC Glucometer 95 89 84 Random Glucose Calcium Total Bilirubin AST ALT Alkaline Phosphatase Total Protein Albumin 02/10/17 02/10/17 07:30 07:30 WBC 5.5 RBC 4.05 Hgb 11.5 Hct 35.5 MCV 87.6 MCH 28.3 MCHC 32.3 RDW 15.8 H Plt Count 166 MPV 8.2 Neutrophils % 51.9 Lymphocytes % 34.5 Monocytes % 11.0 H Eosinophils % 2.3 Basophils % 0.3 Sodium 140 Potassium 4.0 Chloride 106 Carbon Dioxide 28 Anion Gap 6 L BUN 12 D Creatinine 0.3 L Creat Clearance w eGFR > 60 POC Glucometer Random Glucose 83 Calcium 8.8 Total Bilirubin 0.3 D AST 18 D ALT 18 D Alkaline Phosphatase 52 Total Protein 6.6 Albumin 3.0 L HOSPITAL COURSE: Date of Admission:02/06/17 Date of Discharge: 02/10/17 ASSESSMENT/PLAN: Patient is a 76 year old female with a significant past medical history of DM and recurrent multidrug resistant UTIs. She was sent to the ED by her PMD on UTI. Dr. Haley took urine culture that came back positive for Klebsiella that is sensitive only to select antibiotics. Patient states that her symptoms have initially developed on 01/21 with generalized weakness and dysuria, and over the last week she has developed left flank pain. Patient reported difficulty walking, weakness, agitation and increased confusion at home. She denies any fever, chill, nausea, vomiting, abdominal pain. She reports urinary incontinence. Currently, patient appears at baseline, denies SOB, CP, nausea, vomiting. She is ambulating in the hallways with physical therapy, without any dizziness or shortness of breath. Imaging: Renal ultrasound: Both kidneys appear unremarkable ID/Renal: Multidrug resistant UTIs - acute on chronic A/P: Urine culture with + ESBL in urine, blood cultures negative to date On Ertapenem as of 02/06/2017, on IVF of NS @ 75cc/hr Monitor WBC, labs ID following, notes reviewed As per ID, patient will need 2 weeks of IV antibiotics, patient will need PICC line prior to d/c - feb 11 through february 24 Neuro: Toxic metabolic encephalopathy in the setting of a UTI - resolved A/P: Mental status at baseline, no confusion. She is alert and oriented x 3 Ambulatory with physical therapy, steady gait Disposition: Full code. For discharge home today. Minutes to complete discharge: 60 Discharge Summary Reason For Visit: PYELONEPHRITIS Current Active Problems Diabetes mellitus (Acute) Pyelonephritis (Acute) UTI due to Klebsiella species (Acute) Condition: Stable - Instructions Diet, Activity, Other Instructions: Mr. Rm: You were admitted to the hospital on 02/06/2017 for resistant urinary tract infection. You will need at least 2 weeks (from February 11 through February 24 ) of Ertapenem for 2 weeks through your PICC line. Please return to the ER if you have any new or worsening symptoms. [facility] Gureita Sladana [employer] [phone] Referrals: Ana Sam MD [Primary Care Provider] - Disposition: HOME - Home Medications Comprehensive Discharge Medication List: Ambulatory Orders Ascorbic Acid [Vitamin C -] 1,000 mg PO DAILY 02/06/17 Cyanocobalamin [Vitamin B12 -] 0 mcg PO DAILY 02/06/17 Loratadine 5 mg PO DAILY 02/06/17 Metformin HCl [Metformin HCl ER] 1,000 mg PO DAILY 02/06/17 Montelukast Na [Singulair -] 10 mg PO HS 02/06/17 This patient is new to me today: No Emergency Visit: Yes ED Registration Date: 02/06/17 Care time: The patient presented to the Emergency Department on the above date and was hospitalized for further evaluation of their emergent condition. Critical Care patient: No - Discharge Referral Referred to [facility] Med P.C.: No
[2017-02-10] MEDS ORDERED: PT OWN MED DRAWER 7, Y5N ONE (11:43)
[2017-02-10] MEDS: ERTAPENEM SODIUM 1 GM in SODIUM CHLORIDE 50 ML IVPB SCH (11:53)
[2017-02-10] MEDS: ENOXAPARIN NA (PORCINE) 40 MG/0.4 ML DISP.SYRIN SQ SCH (11:53)
[2017-02-10] MEDS: POLYETHYLENE GLYCOL 3350 119 GM BTL PO SCH (11:56)
[2017-02-10] MEDS ORDERED: INSULIN (NOVOLOG) ASPART 100 UNITS/ML 10ML VIAL ONE (12:14)
--- NOTE | 2017-02-10 13:02 | PN ---
Progress Note, Physician History of Present Illness: doing well no issues - Current Medication List Current Medications: Active Medications Acetaminophen (Tylenol -) 650 mg PO Q6H PRN PRN Reason: FEVER OR PAIN Last Admin: 02/07/17 15:31 Dose: 650 mg Docusate Sodium (Colace -) 100 mg PO TID [facility] Last Admin: 02/10/17 06:25 Dose: 100 mg Enoxaparin Sodium (Lovenox -) 40 mg SQ DAILY [facility] Last Admin: 02/10/17 11:53 Dose: 40 mg IV Flush (Picc Line Flush) 8 ml IVPUSH PRN PRN PRN Reason: Protocol Ertapenem 1 gm/ Sodium (Chloride) 50 mls @ 100 mls/hr IVPB DAILY MACHO PRN Reason: Protocol Last Admin: 02/10/17 11:53 Dose: 100 mls/hr Insulin Aspart (Novolog Vial Sliding Scale -) 1 vial SQ ACHS MACHO PRN Reason: Protocol Last Admin: 02/10/17 12:03 Dose: Not Given Polyethylene Glycol (Miralax (For Daily Use) -) 17 gm PO DAILY [facility] Last Admin: 02/10/17 11:56 Dose: Not Given - Objective Vital Signs: Vital Signs Temperature 97.7 F 02/10/17 10:00 Pulse Rate 70 02/10/17 10:00 Respiratory Rate 18 02/10/17 10:00 Blood Pressure 120/60 02/10/17 10:00 O2 Sat by Pulse Oximetry (%) 98 02/09/17 21:00 Constitutional: Yes: No Distress, Calm Cardiovascular: Yes: Regular Rate and Rhythm Respiratory: Yes: Regular, CTA Bilaterally Gastrointestinal: Yes: Normal Bowel Sounds, Soft Musculoskeletal: Yes: WNL Extremities: Yes: WNL Neurological: Yes: Alert, Oriented Psychiatric: Yes: Alert Labs: CBC, BMP 02/10/17 07:30 02/10/17 07:30 Assessment/Plan mdro uti fever pyelo weakness cx result noted patient has esbl uti plan continue current abx patient improving total 2 weeks rest as per primary team
[2017-02-10 14:29] VITALS: BP 109/54; PULSE 76; TEMP 97.9
== END 2017-02-10 18:52 | disposition home or self-care (01) | DRG 689 ==
LOC: JER 11:08 → JERBED 14:47 → J5S 18:05 → J6S 02-08 08:17
PROVIDERS: ADMIT Internal Medicine; ATTEND Nurse Practitioner Family
PROC: 02HV33Z Insertion of Infusion Device into Superior Vena Cava, Percutaneous Approach (ICD-10-PCS; principal; 2017-02-10)
PROC: B548ZZA Ultrasonography of Superior Vena Cava, Guidance (ICD-10-PCS; 2017-02-10)
DX: N10 Acute pyelonephritis (principal); G92 Toxic encephalopathy; N39.0 Urinary tract infection, site not specified; E11.9 Type 2 diabetes mellitus without complications; B96.1 Klebsiella pneumoniae [K. pneumoniae] as the cause of diseases classified elsewhere; Z79.4 Long term (current) use of insulin
CPT/HCPCS: 36415; 36569; 76775-TC; 77001-TC; 80053; 81003; 81015; 83735; 84100; 85025; 87040; 87086; 87186; 93005; 93010; 97116-GP; 97161-GP; 99284-25; C1751

== ENCOUNTER 2017-02-11 10:43 | Day surgery (SDC) | payer OTHER ==
[2017-02-11] MEDS ORDERED: ERTAPENEM SODIUM 1 GM VIAL ONE (11:30)
[2017-02-11 11:36] LABS: MCH 28.6 pg (25.7-33.7); MCHC 32.9 g/dl (32.0-36.0); MEAN CELL VOLUME 86.9 fl (80-96); MEAN PLT VOLUME 7.8 fl (7.5-11.1); PLATELET COUNT 195 K/MM3 (134-434); RDW 15.9 % (11.6-15.6); WHITE BLOOD COUNT 6.1 K/mm3 (4.0-10.0)
[2017-02-11] MEDS ORDERED: ERTAPENEM SODIUM 1 GM/50 ML PRE-DOCKED IVPB ONE (12:00)
[2017-02-11 12:31] LABS: ALBUMIN 3.6 g/dl (3.4-5.0); ALK PHOS 65 U/L (45-117); ANION GAP 8 (8-16); BILIRUBIN,TOTAL 0.2 mg/dL (0.2-1.0); CALCIUM 9.7 mg/dL (8.5-10.1); CO2 29 mmol/L (21-32); CREATININE 0.4 mg/dL (0.55-1.02); GLUCOSE,RANDOM 97 mg/dL (74-106); SGOT/AST 22 U/L (15-37); SGPT/ALT 24 U/L (12-78); TOT PROT 7.6 g/dl (6.4-8.2)
[2017-02-11 12:33] VITALS: TEMP 98.3
[2017-02-11 13:45] VITALS: BP 106/55; PULSE 72
== END 2017-02-11 12:50 | disposition home or self-care (01) ==
LOC: JINFUSION 10:43
PROVIDERS: ATTEND Nurse Practitioner Family
DX: N10 Acute pyelonephritis (principal)
CPT/HCPCS: 36415; 80053; 85027; 96365

== ENCOUNTER 2017-02-12 10:09 | Day surgery (SDC) | payer OTHER ==
[~2017-02-12 10:09] MED LIST: ERTAPENEM SODIUM 1 GM in SODIUM CHLORIDE 50 ML IVPB ONE
[2017-02-12] MEDS ORDERED: ERTAPENEM SODIUM 1 GM VIAL ONE (10:18)
[2017-02-12 10:50] VITALS: TEMP 98.9
[2017-02-12 12:05] VITALS: BP 115/57; PULSE 70
== END 2017-02-12 11:30 | disposition home or self-care (01) ==
LOC: JINFUSION 10:09
PROVIDERS: ATTEND Nurse Practitioner Family
DX: N10 Acute pyelonephritis (principal)
CPT/HCPCS: 96365

== ENCOUNTER → 2017-02-13 | Day surgery (SDC) | payer OTHER ==
[~2017-02-13] MED LIST changes: +ERTAPENEM SODIUM 1 GM VIAL ONE
[2017-02-13 10:48] LABS: MCH 28.3 pg (25.7-33.7); MCHC 32.4 g/dl (32.0-36.0); MEAN CELL VOLUME 87.5 fl (80-96); MEAN PLT VOLUME 7.6 fl (7.5-11.1); PLATELET COUNT 180 K/MM3 (134-434); RDW 15.9 % (11.6-15.6); WHITE BLOOD COUNT 5.8 K/mm3 (4.0-10.0)
[2017-02-13 11:18] VITALS: TEMP 98.1
[2017-02-13 11:25] LABS: ALBUMIN 3.4 g/dl (3.4-5.0); ALK PHOS 68 U/L (45-117); ANION GAP 5 (8-16); BILIRUBIN,TOTAL 0.3 mg/dL (0.2-1.0); CALCIUM 9.5 mg/dL (8.5-10.1); CO2 31 mmol/L (21-32); CREATININE 0.4 mg/dL (0.55-1.02); GLUCOSE,RANDOM 89 mg/dL (74-106); SGOT/AST 25 U/L (15-37); SGPT/ALT 30 U/L (12-78); TOT PROT 7.7 g/dl (6.4-8.2)
[2017-02-13 11:55] VITALS: BP 109/55; PULSE 73
== END | disposition home or self-care (01) ==
LOC: JINFUSION 10:20
PROVIDERS: ATTEND Nurse Practitioner Family
DX: N10 Acute pyelonephritis (principal)
CPT/HCPCS: 36415; 80053; 85027; 96365

== ENCOUNTER 2017-02-14 09:39 | Day surgery (SDC) | payer OTHER ==
[2017-02-14] MEDS ORDERED: ERTAPENEM SODIUM 1 GM VIAL ONE (10:07)
[2017-02-14] MEDS ORDERED: ERTAPENEM SODIUM 1 GM in SODIUM CHLORIDE 50 ML IVPB ONE (10:15)
[2017-02-14 10:51] VITALS: TEMP 98.1
[2017-02-14 11:21] VITALS: BP 111/57; PULSE 78
== END 2017-02-14 11:20 | disposition home or self-care (01) ==
LOC: JINFUSION 09:39
PROVIDERS: ATTEND Nurse Practitioner Family
DX: N10 Acute pyelonephritis (principal)
CPT/HCPCS: 96365

== ENCOUNTER 2017-02-15 09:00 | Day surgery (SDC) | payer OTHER ==
[2017-02-15 09:56] LABS: MCH 28.8 pg (25.7-33.7); MCHC 33.1 g/dl (32.0-36.0); MEAN CELL VOLUME 87.1 fl (80-96); MEAN PLT VOLUME 7.8 fl (7.5-11.1); PLATELET COUNT 177 K/MM3 (134-434); RDW 15.6 % (11.6-15.6); WHITE BLOOD COUNT 6.1 K/mm3 (4.0-10.0)
[2017-02-15 10:20] LABS: ALBUMIN 3.3 g/dl (3.4-5.0); ALK PHOS 73 U/L (45-117); ANION GAP 5 (8-16); BILIRUBIN,TOTAL 0.3 mg/dL (0.2-1.0); CALCIUM 9.3 mg/dL (8.5-10.1); CO2 32 mmol/L (21-32); CREATININE 0.5 mg/dL (0.55-1.02); GLUCOSE,RANDOM 84 mg/dL (74-106); SGOT/AST 19 U/L (15-37); SGPT/ALT 26 U/L (12-78); TOT PROT 7.5 g/dl (6.4-8.2)
[2017-02-15] MEDS ORDERED: ERTAPENEM SODIUM 1 GM in SODIUM CHLORIDE 50 ML IVPB ONE (11:00)
[2017-02-15 12:20] VITALS: TEMP 98.3
[2017-02-15 15:42] VITALS: BP 118/61; PULSE 79
== END 2017-02-15 14:24 | disposition home or self-care (01) ==
LOC: J7W 09:00 → JINFUSION 09:00
PROVIDERS: ATTEND Nurse Practitioner Family
DX: N10 Acute pyelonephritis (principal)
CPT/HCPCS: 36415; 80053; 85027; 96365

== ENCOUNTER 2017-02-16 09:41 | Day surgery (SDC) | payer OTHER ==
[2017-02-16] MEDS ORDERED: ERTAPENEM SODIUM 1 GM in SODIUM CHLORIDE 50 ML IVPB ONE (10:35)
[2017-02-16 11:59] VITALS: BP 108/57; PULSE 77; TEMP 97.9
== END 2017-02-16 13:06 | disposition home or self-care (01) ==
LOC: J7W 09:41 → JINFUSION 09:41
PROVIDERS: ATTEND Nurse Practitioner Family
DX: N10 Acute pyelonephritis (principal)
CPT/HCPCS: 96365

== ENCOUNTER 2017-02-17 10:16 | Day surgery (SDC) | payer OTHER ==
[2017-02-17] MEDS ORDERED: ERTAPENEM SODIUM 1 GM in SODIUM CHLORIDE 50 ML IVPB ONE (11:00)
[2017-02-17 16:43] VITALS: BP 110/64; PULSE 72; TEMP 98.3
== END 2017-02-17 11:45 | disposition home or self-care (01) ==
LOC: JINFUSION 10:16
PROVIDERS: ATTEND Nurse Practitioner Family
DX: N10 Acute pyelonephritis (principal)
CPT/HCPCS: 96365

== ENCOUNTER 2017-02-18 09:53 | Day surgery (SDC) | payer OTHER ==
[2017-02-18] MEDS ORDERED: ERTAPENEM SODIUM 1 GM in SODIUM CHLORIDE 50 ML IVPB ONE (10:16)
[2017-02-18] MEDS ORDERED: ERTAPENEM SODIUM 1 GM VIAL ONE (10:16)
[2017-02-18 10:26] LABS: MCH 28.2 pg (25.7-33.7); MCHC 32.2 g/dl (32.0-36.0); MEAN CELL VOLUME 87.6 fl (80-96); MEAN PLT VOLUME 7.8 fl (7.5-11.1); PLATELET COUNT 177 K/MM3 (134-434); RDW 15.3 % (11.6-15.6); WHITE BLOOD COUNT 5.9 K/mm3 (4.0-10.0)
[2017-02-18 10:38] VITALS: TEMP 98.1
[2017-02-18 10:56] LABS: ALBUMIN 3.2 g/dl (3.4-5.0); ALK PHOS 71 U/L (45-117); ANION GAP 2 (8-16); BILIRUBIN,TOTAL 0.4 mg/dL (0.2-1.0); CALCIUM 9.2 mg/dL (8.5-10.1); CO2 33 mmol/L (21-32); CREATININE 0.4 mg/dL (0.55-1.02); GLUCOSE,RANDOM 89 mg/dL (74-106); SGOT/AST 17 U/L (15-37); SGPT/ALT 22 U/L (12-78); TOT PROT 7.4 g/dl (6.4-8.2)
[2017-02-18 11:27] VITALS: BP 105/60; PULSE 75
== END 2017-02-18 11:41 | disposition home or self-care (01) ==
LOC: JINFUSION 09:53
PROVIDERS: ATTEND Nurse Practitioner Family
DX: N10 Acute pyelonephritis (principal)
CPT/HCPCS: 36415; 80053; 85027; 96365

== ENCOUNTER 2017-02-19 10:19 | Day surgery (SDC) | payer OTHER ==
[2017-02-19] MEDS ORDERED: ERTAPENEM SODIUM 1 GM VIAL ONE (10:28)
[2017-02-19 10:58] VITALS: TEMP 98.2
[2017-02-19 11:37] VITALS: BP 120/63; PULSE 61
[2017-02-19] MEDS ORDERED: ERTAPENEM SODIUM 1 GM in SODIUM CHLORIDE 50 ML IVPB ONE (12:00)
== END 2017-02-19 11:39 | disposition home or self-care (01) ==
LOC: JINFUSION 10:19
PROVIDERS: ATTEND Nurse Practitioner Family
DX: N10 Acute pyelonephritis (principal)
CPT/HCPCS: 96365

== ENCOUNTER 2017-02-20 09:25 | Day surgery (SDC) | payer OTHER ==
[2017-02-20] MEDS ORDERED: ERTAPENEM SODIUM 1 GM VIAL ONE (09:41)
[2017-02-20] MEDS ORDERED: ERTAPENEM SODIUM 1 GM in SODIUM CHLORIDE 50 ML IVPB ONE (10:00)
[2017-02-20 10:07] VITALS: TEMP 98.2
[2017-02-20 10:30] VITALS: BP 120/50; PULSE 64
== END 2017-02-20 10:30 | disposition home or self-care (01) ==
LOC: JINFUSION 09:25
PROVIDERS: ATTEND Nurse Practitioner Family
DX: N10 Acute pyelonephritis (principal)
CPT/HCPCS: 96365

== ENCOUNTER 2017-02-21 10:06 | Day surgery (SDC) | payer OTHER ==
[2017-02-21] MEDS ORDERED: ERTAPENEM SODIUM 1 GM VIAL ONE (10:25)
[2017-02-21 10:27] LABS: MCH 28.2 pg (25.7-33.7); MCHC 32.3 g/dl (32.0-36.0); MEAN CELL VOLUME 87.5 fl (80-96); MEAN PLT VOLUME 7.6 fl (7.5-11.1); PLATELET COUNT 178 K/MM3 (134-434); RDW 15.2 % (11.6-15.6); WHITE BLOOD COUNT 5.6 K/mm3 (4.0-10.0)
[2017-02-21 10:44] VITALS: TEMP 98.2
[2017-02-21 10:54] LABS: ALBUMIN 3.3 g/dl (3.4-5.0); ANION GAP 6 (8-16); BILIRUBIN,TOTAL 0.4 mg/dL (0.2-1.0); CALCIUM 9.1 mg/dL (8.5-10.1); CO2 30 mmol/L (21-32); CREATININE 0.4 mg/dL (0.55-1.02); GLUCOSE,RANDOM 89 mg/dL (74-106); SGOT/AST 18 U/L (15-37); SGPT/ALT 20 U/L (12-78); TOT PROT 7.6 g/dl (6.4-8.2)
[2017-02-21 10:55] LABS: ALK PHOS 71 U/L (45-117)
[2017-02-21 11:18] VITALS: BP 115/54; PULSE 73
== END 2017-02-21 11:22 | disposition home or self-care (01) ==
LOC: JINFUSION 10:06
PROVIDERS: ATTEND Nurse Practitioner Family
DX: N10 Acute pyelonephritis (principal)
CPT/HCPCS: 36415; 80053; 85027; 96365

== ENCOUNTER 2017-02-22 09:04 | Day surgery (SDC) | payer OTHER ==
[2017-02-22 09:25] VITALS: TEMP 98.3
[2017-02-22] MEDS ORDERED: ERTAPENEM SODIUM 1 GM in SODIUM CHLORIDE 50 ML IVPB ONE (09:30)
[2017-02-22 10:28] VITALS: BP 94/54; PULSE 80
[2017-02-22 12:21] VITALS: BMI 28.7
== END 2017-02-22 12:00 | disposition home or self-care (01) ==
LOC: JINFUSION 09:04 → J7W 09:05 → JINFUSION 12:00
PROVIDERS: ATTEND Nurse Practitioner Family
DX: N10 Acute pyelonephritis (principal)
CPT/HCPCS: 96365; 96366

== ENCOUNTER 2017-02-23 09:30 | Day surgery (SDC) | payer OTHER ==
[2017-02-23] MEDS ORDERED: ERTAPENEM SODIUM 1 GM in SODIUM CHLORIDE 50 ML IVPB ONE (10:00)
[2017-02-23 10:52] VITALS: BP 112/59; PULSE 76; TEMP 98.1
[2017-02-23 12:29] LABS: MCH 28.2 pg (25.7-33.7); MCHC 32.3 g/dl (32.0-36.0); MEAN CELL VOLUME 87.4 fl (80-96); MEAN PLT VOLUME 7.9 fl (7.5-11.1); PLATELET COUNT 180 K/MM3 (134-434); RDW 15.9 % (11.6-15.6); WHITE BLOOD COUNT 6.2 K/mm3 (4.0-10.0)
[2017-02-23 12:48] LABS: ALBUMIN 3.1 g/dl (3.4-5.0); ALK PHOS 68 U/L (45-117); ANION GAP 8 (8-16); BILIRUBIN,TOTAL 0.3 mg/dL (0.2-1.0); CALCIUM 8.7 mg/dL (8.5-10.1); CO2 31 mmol/L (21-32); CREATININE 0.4 mg/dL (0.55-1.02); GLUCOSE,RANDOM 75 mg/dL (74-106); SGOT/AST 20 U/L (15-37); SGPT/ALT 21 U/L (12-78); TOT PROT 7.2 g/dl (6.4-8.2)
== END 2017-02-23 12:35 | disposition home or self-care (01) ==
LOC: J7W 09:30 → JINFUSION 09:30
PROVIDERS: ATTEND Nurse Practitioner Family
DX: N10 Acute pyelonephritis (principal)
CPT/HCPCS: 36415; 80053; 85027; 96365

== ENCOUNTER 2017-02-24 09:21 | Day surgery (SDC) | payer OTHER ==
[2017-02-24] MEDS ORDERED: ERTAPENEM SODIUM 1 GM VIAL ONE (09:43)
[2017-02-24 10:22] VITALS: BP 113/52; PULSE 81; TEMP 98.3
[2017-02-24] MEDS ORDERED: ERTAPENEM SODIUM 1 GM in SODIUM CHLORIDE 50 ML IVPB ONE (10:30)
== END 2017-02-24 10:46 | disposition home or self-care (01) ==
LOC: JINFUSION 09:21
PROVIDERS: ATTEND Nurse Practitioner Family
DX: N10 Acute pyelonephritis (principal)
CPT/HCPCS: 87086; 96365